=== PATIENT | female | born 1975 | race Caucasian/White ===

== ENCOUNTER 2017-05-29 22:35 | Emergency (ER) | payer OTHER ==
[~2017-05-29] VITALS: Ht 157.5 cm; Wt 59.0 kg
[~2017-05-29 22:35] MED LIST: ALBU1AER9 INH; ASPI325T45 PO; CITA40TA12 PO; DVN/160 PO; MONT1TAB3 PO
[2017-05-29 22:40] VITALS: TEMP 36.5; Ht 157.5 cm; Wt 59.0 kg
[2017-05-29] MEDS ORDERED: KETOROLAC TROMETHAMINE 30 MG/ML VIAL IV STA (22:46)
--- NOTE | 2017-05-29 22:59 | DIAGNOSTIC IMAGING REPORT ---
CHEST ONE VIEW PORTABLE CLINICAL HISTORY: CHEST PAIN pain COMPARISON STUDY: No previous studies for comparison. FINDINGS: The bones soft tissues and hemidiaphragms are normal. The cardiomediastinal silhouette is normal. The lungs are clear. The pulmonary vasculature is normal. IMPRESSION: Negative chest. The above report was generated using voice recognition software. It may contain grammatical, syntax or spelling errors. Electronically signed by: Cash Staley M.D. 05/29/2017 10:58 PM Dictated Date/Time: 05/29/2017 10:58 PM
[2017-05-29 23:06] VITALS: O2SAT 97
[2017-05-29 23:20] LABS: BASO % 0.4 %; BASO ABS # 0.03 K/uL (0-0.2); EOS % 0.7 %; EOS ABS # 0.05 K/uL (0-0.5); HEMATOCRIT 36.9 % (37-47); HEMOGLOBIN 11.6 g/dL (12.0-16.0); IG# 0.01 K/uL (0.00-0.02); LYMPH % 40.9 %; LYMPH ABS # 2.92 K/uL (1.2-3.4); MEAN CELL VOLUME 80.6 fL (80-100); MEAN CORPUSCULAR HEMOGLOBIN 25.3 pg (25-34); MEAN CORPUSCULAR HGB CONC 31.4 g/dl (32-36); MEAN PLATELET VOLUME 10.2 fL (7.4-10.4); MONO % 6.6 %; MONO ABS # 0.47 K/uL (0.11-0.59); NEUT % 51.3 %; NEUT ABS # 3.66 K/uL (1.4-6.5); PLATELET COUNT 304 K/uL (130-400); RED CELL DISTRIBUTION WIDTH CV 17.9 % (11.5-14.5); RED CELL DISTRIBUTION WIDTH SD 52.2 fL (36.4-46.3); WHITE BLOOD COUNT 7.14 K/uL (4.8-10.8)
[2017-05-29 23:38] LABS: ALBUMIN 3.6 gm/dl (3.4-5.0); ALT/SGPT 27 U/L (12-78); BLOOD UREA NITROGEN 7 mg/dl (7-18); CARBON DIOXIDE 27 mmol/L (21-32); CREATININE 0.97 mg/dl (0.60-1.20); GLUCOSE 118 mg/dl (70-99); LIPASE 142 U/L (73-393); SODIUM 139 mmol/L (136-145)
[2017-05-29 23:43] LABS: ALKALINE PHOSPHATASE 81 U/L (45-117); AST/SGOT 24 U/L (15-37); TOTAL PROTEIN 7.5 gm/dl (6.4-8.2)
[2017-05-29] MEDS ORDERED: MONT1TAB3 PO (23:45)
[2017-05-29] MEDS ORDERED: VNTHFA/IN INH (23:45)
[2017-05-29] MEDS ORDERED: CITA40TA12 PO (23:45)
[2017-05-29] MEDS ORDERED: POTASSIUM CHLORIDE 10 MEQ TABCR PO STA (23:53)
[2017-05-30 02:00] VITALS: BP 105/71; PULSE 78; O2SAT 98
--- NOTE | 2017-05-30 02:58 | EMERGENCY ROOM VISIT NOTE ---
History First contact with patient: 22:46 Chief Complaint: RIB PAIN Stated Complaint: L FLANK PAIN, SOB History of Present Illness The patient is a 42 year old female who presents to the Emergency Room with complaints of left lateral rib flank pain for the past few hours described as aching, ranging in severity currently 5 out of 10 with some mild shortness of breath. Patient does have asthma. Patient quit smoking back in . No prior heart disease. Patient has had shingles before. Patient states nothing makes the pain better or worse. Patient denies chest pain, fever, chills, cough, congestion, abdominal pain, nausea, vomiting, diarrhea, urinary symptoms. No rashes. No injury to the area. Review of Systems An 10 system review of systems was completed with positives and pertinent negatives listed in the HPI. Past Medical/Surgical History Asthma Social History Smoking Status: Former Smoker Smokeless Tobacco Use: No Alcohol Use: none Drug Use: none Marital Status: Housing Status: lives with family Occupation Status: employed Current/Historical Medications Scheduled Citalopram Hydrobromide (Celexa), 40 MG PO DAILY Montelukast Sodium (Singulair), 10 MG PO DAILY Scheduled PRN Albuterol Hfa (Ventolin Hfa), 2 PUFFS INH Q6H PRN for SOB/Wheezing Physical Exam Vital Signs Date Time Temp Pulse Resp B/P (MAP) Pulse Ox O2 Delivery O2 Flow Rate FiO2 05/30/17 02:00 78 20 105/71 98 05/30/17 01:32 73 20 105/71 98 Room Air 05/30/17 01:02 70 18 132/48 97 Room Air 05/30/17 00:45 74 18 153/82 98 Room Air 05/30/17 00:01 74 22 124/77 100 Room Air 05/29/17 23:35 74 18 116/80 96 Room Air 05/29/17 23:06 97 Room Air 05/29/17 22:49 110 05/29/17 22:46 83 05/29/17 22:40 36.5 82 20 140/58 97 Room Air Physical Exam VITALS: Vitals are noted on the nurse's note and reviewed by myself. Vital signs stable. GENERAL: Pleasant edema, in no acute distress, nondiaphoretic, well-developed well-nourished. SKIN: The skin was without rashes, erythema, edema, or bruising. There is no tenting of the skin. Capillary reflex less than 2 seconds. HEAD: Normocephalic atraumatic. EARS: External auditory canals clear, tympanic membranes pearly telles without erythema or effusion bilaterally. EYES: Pupils equal round and reactive to light and accommodation. Conjunctivae without injection, sclerae without icterus. Extraocular movements intact. NOSE: Patent, turbinates without inflammation or discharge. MOUTH: Mucous membranes moist. Pharynx without erythema or exudate. Uvula midline. Airway patent. Tongue does not deviate. NECK: Supple without nuchal rigidity. No lymphadenopathy. No thyromegaly. Cervical spine is nontender. No JVD. HEART: Regular rate and rhythm without murmurs gallops or rubs. Left lateral chest wall tender to palpation easily reproducing symptoms LUNGS: Clear to auscultation bilaterally without wheezes, rales or rhonchi. No retractions or accessory muscle use. ABDOMEN: Positive bowel sounds x 4. Normal tympanic percussion. Soft, nontender, without masses or organomegaly. Graves sign negative. No guarding or rebound tenderness. No CVA tenderness MUSCULOSKELETAL: No muscle atrophy, erythema, or edema noted. NEURO: Patient was alert and oriented to person place and time. Normal sensation to light and sharp touch. No focal neurological deficits. Medical Decision & Procedures Laboratory Results 05/29/17 23:06 Red Blood Count 4.58, Mean Corpuscular Volume 80.6, Mean Corpuscular Hemoglobin 25.3, Mean Corpuscular Hemoglobin Concent 31.4, Mean Platelet Volume 10.2, Neutrophils (%) (Auto) 51.3, Lymphocytes (%) (Auto) 40.9, Monocytes (%) (Auto) 6.6, Eosinophils (%) (Auto) 0.7, Basophils (%) (Auto) 0.4, Neutrophils # (Auto) 3.66, Lymphocytes # (Auto) 2.92, Monocytes # (Auto) 0.47, Eosinophils # (Auto) 0.05, Basophils # (Auto) 0.03 05/29/17 23:06 Test 05/29/17 23:06 05/29/17 23:13 05/30/17 00:45 05/30/17 01:14 White Blood Count 7.14 K/uL (4.8-10.8) Red Blood Count 4.58 M/uL (4.2-5.4) Hemoglobin 11.6 g/dL (12.0-16.0) Hematocrit 36.9 % (37-47) Mean Corpuscular Volume 80.6 fL (80-100) Mean Corpuscular Hemoglobin 25.3 pg (25-34) Mean Corpuscular Hemoglobin Concent 31.4 g/dl (32-36) Platelet Count 304 K/uL (130-400) Mean Platelet Volume 10.2 fL (7.4-10.4) Neutrophils (%) (Auto) 51.3 % Lymphocytes (%) (Auto) 40.9 % Monocytes (%) (Auto) 6.6 % Eosinophils (%) (Auto) 0.7 % Basophils (%) (Auto) 0.4 % Neutrophils # (Auto) 3.66 K/uL (1.4-6.5) Lymphocytes # (Auto) 2.92 K/uL (1.2-3.4) Monocytes # (Auto) 0.47 K/uL (0.11-0.59) Eosinophils # (Auto) 0.05 K/uL (0-0.5) Basophils # (Auto) 0.03 K/uL (0-0.2) RDW Standard Deviation 52.2 fL (36.4-46.3) RDW Coefficient of Variation 17.9 % (11.5-14.5) Immature Granulocyte % (Auto) 0.1 % Immature Granulocyte # (Auto) 0.01 K/uL (0.00-0.02) Anion Gap 7.0 mmol/L (3-11) Est Creatinine Clear Calc Drug Dose 59.2 ml/min Estimated GFR () 82.9 Estimated GFR (Non- 71.5 BUN/Creatinine Ratio 7.3 (10-20) Calcium Level 9.0 mg/dl (8.5-10.1) Total Bilirubin 0.3 mg/dl (0.2-1) Direct Bilirubin < 0.1 mg/dl (0-0.2) Aspartate Amino Transf (AST/SGOT) 24 U/L (15-37) Alanine Aminotransferase (ALT/SGPT) 27 U/L (12-78) Alkaline Phosphatase 81 U/L (45-117) Troponin I < 0.015 ng/ml (0-0.045) Total Protein 7.5 gm/dl (6.4-8.2) Albumin 3.6 gm/dl (3.4-5.0) Lipase 142 U/L (73-393) Human Chorionic Gonadotropin, Qual NEG (NEG) Bedside D-Dimer 287 ng/mlFEU (0-450) Urine Color YELLOW Urine Appearance CLEAR (CLEAR) Urine pH 5.0 (4.5-7.5) Urine Specific Grover 1.010 (1.000-1.030) Urine Protein NEG (NEG) Urine Glucose (UA) NEG (NEG) Urine Ketones NEG (NEG) Urine Occult Blood NEG (NEG) Urine Nitrite NEG (NEG) Urine Bilirubin NEG (NEG) Urine Urobilinogen NEG (NEG) Urine Leukocyte Esterase NEG (NEG) Bedside Troponin I < 0.030 ng/ml (0-0.045) Medications Administered Medications (Trade) Dose Ordered Sig/Lonnie Route Start Time Stop Time Status Last Admin Dose Admin Ketorolac Tromethamine (Toradol Inj) 30 mg NOW STAT IV 05/29/17 22:46 05/29/17 22:49 DC 05/29/17 23:10 30 MG Potassium Chloride (Klor-Con M10) 40 meq NOW STAT PO 05/29/17 23:53 05/29/17 23:55 DC 05/30/17 00:46 40 MEQ ED Course Prior records/ancillary studies reviewed. Triage Nursing notes reviewed. Additional history obtained from family. The patient's history was concerning for left lateral chest pain. Differential diagnosis: Etiologies such as shingles, renal colic, cardiac ischemia, aortic dissection, pulmonary embolism, pneumonia, pneumothorax, musculoskeletal, infections, pericarditis, myocarditis, esophageal rupture, gastrointestinal, as well as others were entertained. Physical examination: As above. ER treatment provided: Toradol On reassessment the patient felt better. Diagnostic interpretation by me: The electrocardiogram was negative for pathologic change. Normal sinus, normal intervals, poor baseline, no acute ST-T wave changes, rate is 78. Impression normal sinus rhythm interpreted by myself The labs revealed 2 negative troponins greater than 2 hours apart. Negative d- dimer. Hypokalemia this is replaced orally Imaging studies: [~ rep ct add3]] CHEST ONE VIEW PORTABLE CLINICAL HISTORY: CHEST PAIN pain COMPARISON STUDY: No previous studies for comparison. FINDINGS: The bones soft tissues and hemidiaphragms are normal. The cardiomediastinal silhouette is normal. The lungs are clear. The pulmonary vasculature is normal. IMPRESSION: Negative chest. The above report was generated using voice recognition software. It may contain grammatical, syntax or spelling errors. Renal ultrasound with no hydronephrosis. Asymmetric renal size larger on the left than right. Findings are nonspecific. This was read by stat radiology HEART SCORE: Hx: high/mod/low suspicion: 0 ECG: ST depression/nonspecific changes/normal: 0 Age: Greater than 65/45-64/less than 45: 0 Risk factors: (Hypertension, hyperlipidemia, diabetes, coronary disease, tobacco use, cocaine use): 0 Troponin: Greater than 2 times normal limits/1-2 times normal limits/normal: 0 Total: 0 Exam and history seems consistent with left lateral chest/rib pain with unclear etiology. This could be muscle skeletal. Patient felt much better to be medicated as above. No signs of kidney stones. She had 2 negative troponins that was greater than 2 hours apart and a normal EKG. She had negative d- dimer. Patient was advised to follow-up tomorrow with her family doctor for further evaluation treatment and for her abnormal ultrasound or here in the ER sooner for chest pain, difficulty breathing, worsening signs or symptoms or as needed. She was advised to watch out for shingles again. By the evaluation outlined above emergent etiologies such as cardiac ischemia, aortic dissection, pulmonary embolism, pneumonia, pneumothorax, infections, pericarditis, myocarditis, gastrointestinal, as well as others were deemed relatively unlikely. The pt informed about the findings as listed above. All questions were answered and pleased with the treatment. Return instructions were outlined and the patient was discharged in stable condition. Case reviewed with my attending Referral: The patient was referred back to primary care physician for follow-up in 2 to 3 days for a recheck of the current condition. The chart was completed utilizing [employer] voice recognition software. Grammatical errors, random word insertions, pronoun errors, and incomplete sentences are an occassional consequence of this system due to software limitations, ambient noise, and hardware issues. Any formal questions or concerns about the content, text, or information contained within the body of this dictation should be directly addressed to the physician temporary office assistant for clarification. Medical Decision As above Medication Reconcilliation Current Medication List: was personally reviewed by me Blood Pressure Screening Patient's blood pressure: Normal blood pressure Impression Primary Impression: Left flank pain Additional Impressions: Hypokalemia Anemia Departure Information Dispostion Home / Self-Care Condition GOOD Forms WORK / SCHOOL INSTRUCTIONS, HOME CARE DOCUMENTATION FORM, IMPORTANT VISIT INFORMATION Patient Instructions My [facility], ED Flank Pain Uncertain Cause Additional Instructions Watch for signs for recurrent shingles. Your kidney is slightly larger on the right side. See your family care doctor follow-up for this. This could be a normal variant for you. Ibuprofen(Motrin, Advil) may be used for fever or pain. Use 600mg every six hours as needed. Take with food. Avoid using more than 2400mg in a 24 hour period. Do not use 2400mg per day for more than three consecutive days without physician direction. Prolonged inappropriate use can lead to stomach upset or ulcers. (AND/OR) Acetaminophen(Tylenol) may be used for fever or pain. Use 1000mg every six hours as needed. Avoid using more than 3000mg in a 24 hour period. Rest and drink plenty of fluids as tolerated. Continue current medications. Avoid strenuous activities and anything that worsens your pain. Resume normal activities once your symptoms resolve. Return to the ER immediately for worsening or persistent chest pain, abdominal pain, vomiting, fevers, chest pains, difficulty breathing, worsening of your condition, or as needed. Follow up with your primary physician in 2-3 days for a recheck of your current condition. Problem Qualifiers
--- NOTE | 2017-05-30 07:36 | DIAGNOSTIC IMAGING REPORT ---
(RENAL)RETROPERITON COMP CLINICAL HISTORY: 42 years-old Female presenting with left flank pain. TECHNIQUE: Real-time grayscale and limited color Doppler ultrasound imaging of the kidneys and bladder was performed. COMPARISON: None. FINDINGS: Right kidney: Normal echogenicity of renal parenchyma. Right kidney measures 8.0 cm. No hydronephrosis. No convincing evidence of calculus or mass. Left kidney: Normal echogenicity of renal parenchyma. Left kidney measures 9.7 cm. No hydronephrosis. No convincing evidence of calculus or mass. Bladder: Normal. Bilateral ureteral jets not visualized. Other: Incidental note made of a mildly prominent spleen, which is top normal in size. IMPRESSION: 1. Asymmetric small right kidney may be technical/artifactual, congenital, or relate to atrophy. 2. No hydronephrosis. Electronically signed by: Chucho Saez M.D. 05/30/2017 7:35 AM Dictated Date/Time: 05/30/2017 6:58 AM
--- NOTE | 2017-05-30 22:23 | EMERGENCY ROOM VISIT NOTE ---
ED Visit Note First contact with patient: 22:46 I reviewed the patient's past medical history, medications, and visit nursing notes. I discussed the case with the physician billing and accounting staff assistant and agree with the findings and plan as documented in the physician assistants note.
== END 2017-05-30 02:01 | disposition home or self-care (01) ==
LOC: EDBD 22:35 → MERGE 22:35 → C.EDB 22:35
DX: R10.12 Left upper quadrant pain (principal); R10.32 Left lower quadrant pain; E87.6 Hypokalemia; D64.9 Anemia, unspecified; J45.909 Unspecified asthma, uncomplicated; Z87.891 Personal history of nicotine dependence